=== PATIENT | female | born 2000 | race Caucasian/White ===

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

== ENCOUNTER 2020-04-28 14:14 | Observation (INO) | payer OTHER ==
[2020-04-28 15:00] LABS: Appearance,Urine Cloudy (Clear); Bilirubin,Urine Negative (Negative); Blood,Urine Negative (Negative); Color,Urine Yellow; Glucose,Urine (UA) Negative (Negative); Ketones,Urine Negative (Negative); Leukocyte Esterase,Urine Negative (Negative); Mucus,Urine Rare /hpf; Nitrite,Urine Negative (Negative); PH, Urine 7.5 (5.0-8.0); Protein,Urine Negative (Negative); RBC,Urine 1 /hpf (0-5); Specific Gravity,Urine 1.016 (1.001-1.035); Squamous Epithelial Cell,Urine 7 /hpf (0-4); Urobilinogen,Urine <2.0 mg/dL (<2.0); WBC,Urine 3 /hpf (0-5)
[2020-04-28 15:19] LABS: Basophils % (A) 0 %; Eosinophils # (A) 0.3 k/uL (0-0.7); Eosinophils % (A) 3 %; HCT 37.2 % (34.0-46.0); HGB 12.6 gm/dL (11.4-16.0); Lymphocytes # (A) 1.5 k/uL (1.0-4.8); Lymphocytes % (A) 19 %; MCH 32.2 pg (25.0-35.0); MCHC 33.9 g/dL (31.0-37.0); MCV 95.1 fL (80.0-100.0); Mean Platelet Volume 8.1; Monocytes # (A) 0.4 k/uL (0-1.0); Monocytes % (A) 5 %; Neutrophils # (A) 5.6 k/uL (1.3-7.7); Neutrophils % (A) 71 %; Platelet Count 165 k/uL (150-450); RBC 3.92 m/uL (3.80-5.40); WBC 7.9 k/uL (3.8-10.6)
[2020-04-28 15:34] LABS: ALT 9 U/L (4-34); AST 16 U/L (14-36); African American GFR (CKD) >90 (>60 ml/min/1.73 sqM); Blood Urea Nitrogen 7 mg/dL (7-17); LDH 314 U/L (313-618); Non-African American GFR(CKD) >90 (>60 ml/min/1.73 sqM); Uric Acid 4.4 mg/dL (3.7-7.4)
[2020-04-28 15:43] LABS: Creatinine,Urine Random 65.8 mg/dL; Protein/Creatinine Ratio,Urine 0.137
[2020-04-28] MEDS: BETAMET ACET-BETAMETH SOD PHOS 6 MG/ML MDV IM SCH (17:00)
--- NOTE | 2020-04-28 17:29 | US ---
EXAMINATION TYPE: US OB >= 14 wk fetus DATE OF EXAM: 04/28/2020 COMPARISON: None CLINICAL HISTORY: Gestational Hypertension TECHNIQUE: Transabdominal (TA) GESTATIONAL AGE / DATING Physician Established: (32 weeks/2 days) EDC: 06/22/20 Dates by LMP: LMP unknown Dates by First Scan: 1st scan not available Dates by Current Scan: (32 weeks/2 days) EDC: 06/22/20 SURVEY IUP: Single PLACENTA: Anterior PREVIA: No Previa LOS: 14.7 cm CERVICAL LENGTH (transabdominal: norm > 3.0cm): 3.6 cm BIOMETRY PRESENTATION: LIE: Transverse with head maternal Right BPD: 8.0 cm 32 weeks / 2 days HC: 29.3 cm 32 weeks / 3 days AC: 27.8 cm 31 weeks / 6 days FL: 6.1 cm 31 weeks / 5 days ESTIMATED WEIGHT IN GRAMS: 1856 grams ESTIMATED WEIGHT IN LBS/OZ: 4 lbs. 1 oz. WEIGHT PERCENTAGE BASED ON ESTABLISHED DATES: 27 % HC/AC: 1.05 FL/AC: 22% HEART RATE: 158 bpm RHYTHM: Normal IMPRESSION: The ultrasound gestational age is 32 weeks and 1 day. The YAZMIN is 06/22/2020. Estimated weight is 1856 g.
--- NOTE | 2020-04-28 19:54 | P.HPOB ---
History of Present Illness H&P Date: 04/28/20 Chief Complaint: elevated BP 20 year old at 32.2 presented to the office with a mildly elevated BP of 142/82. When she presented to triage, her BPs were 130-150/80-90. Her pre- eclamptic labs were normal except the p/c ratio which was elevated. With her history of GHTN in a previous , I will keep her to give celestone injections, monitor BP and perform 24 hour urine protein. NST is reactive; category 1 heart tones, and she is not chelsi. Review of Systems All systems: negative Constitutional: Denies chills, Denies fever Eyes: denies blurred vision, denies pain Ears, nose, mouth and throat: Denies headache, Denies sore throat Cardiovascular: Denies chest pain, Denies shortness of breath Respiratory: Denies cough Gastrointestinal: Denies abdominal pain, Denies diarrhea, Denies nausea, Denies vomiting Genitourinary: Denies dysuria, Denies hematuria Musculoskeletal: Denies myalgias Integumentary: Denies pruritus, Denies rash Neurological: Denies numbness, Denies weakness Psychiatric: Denies anxiety, Denies depression Endocrine: Denies fatigue, Denies weight change Past Medical History Past Medical History: Asthma Additional Past Medical History / Comment(s): Obtetric history: first she delivered by C/S at 39 weeks for transverse lie with GDM and GHTN. THis is her second . She has been followed by Dr Valdez with [place] [facility] [place]. History of Any Multi-Drug Resistant Organisms: None Reported Past Surgical History: Section Past Anesthesia/Blood Transfusion Reactions: No Reported Reaction Additional Past Anesthesia/Blood Transfusion Reaction / Comment(s): Has never had general anesthesia. Past Psychological History: Anxiety, Depression Smoking Status: Never smoker Past Alcohol Use History: None Reported Past Drug Use History: None Reported - Past Family History Mother Family Medical History: Diabetes Mellitus Medications and Allergies Home Medications Medication Instructions Recorded Confirmed Type RX: Pnv,Calcium 72/Iron/Folic Acid 1 each PO DAILY 11/16/18 11/20/18 History [ Plus Tablet] RX: Aspirin [Children's Aspirin] 81 mg DAILY 04/28/20 04/28/20 History Allergies Allergy/AdvReac Type Severity Reaction Status Date / Time No Known Allergies Allergy Verified 11/20/18 11:07 Exam Osteopathic Statement: *. No significant issues noted on an osteopathic structural exam other than those noted in the History and Physical/Consult. Vital Signs Temp Pulse Resp BP 04/28/20 14:32 98.1 F 108 H 16 149/98 Intake and Output 04/28/20 04/28/20 04/28/20 06:59 14:59 22:59 Other: Weight 88.904 kg 88.904 kg HEart: RRR Lungs: CTAB Abdomen: soft, nontender, gravid Extremteites: neg niecy's 2+/4 DTR Results Result Diagrams: 04/28/20 14:53 04/28/20 14:53 Abnormal Lab Results - Last 24 Hours (Table) 04/28/20 04/28/20 Range/Units 14:35 14:53 Creatinine 0.43 L (0.52-1.04) mg/dL Urine Appearance Cloudy H (Clear) Ur Squamous Epith Cells 7 H (0-4) /hpf Urine Mucus Rare H (None) /hpf Assessment and Plan (1) 32 weeks gestation of Current Visit: Yes Status: Acute Code(s): Z3A.32 - 32 WEEKS GESTATION OF PRE GNANCY SNOMED Code(s): 8557683 (2) Gestational hypertension Current Visit: No Status: Acute Code(s): O13.9 - GESTATIONAL HTN W/O SIGNIFICANT PROTEINURIA, UNSP TRIMESTER SNOMED Code(s): 319055135 Plan: 1. will admit for obs 2. monitor BPs 3. collect 24 hour urine protein since the p/c ratio was elevated 4. celestone injections in case she needs early delivery
[2020-04-29 09:56] VITALS: RESP 16
--- NOTE | 2020-04-29 13:30 | P.DS ---
Providers Date of admission: 04/28/20 16:21 Expected date of discharge: 04/29/20 Attending physician: Wendy Valdez Primary care physician: Stated None Hospital Course: This is a 20-year-old female at 32-2/7 weeks who was admitted for a 24- hour urine collection for total protein due to gestational hypertension. Her initial protein to creatinine ratio was actually normal but due to elevated blood pressures decision was made to observe her and do a more thorough 24-hour urine collection. She denies any headaches or blurry vision. She admits to good movement. She denies any regular contractions. She is currently completing a 24-hour urine collection and blood pressures have been in the nonsevere range. She has also received 1 dose of Celestone and will receive a second dose today. Plan is for discharge home today after her second Celestone injection. She will continue to follow up in the office for twice weekly nonstress tests and has an appointment to follow-up with me next week. She also has maternal medicine appointment for ultrasound next week. She is advised to return to the hospital if she starts having any severe symptoms such as severe headache, blurry vision, epigastric pain, or any other concerning symptoms. Patient Condition at Discharge: Stable Plan - Discharge Summary New Discharge Prescriptions: No Action RX: Pnv,Calcium 72/Iron/Folic Acid [ Plus Tablet] 1 each PO DAILY RX: Aspirin [Children's Aspirin] 81 mg DAILY Discharge Medication List RX: Pnv,Calcium 72/Iron/Folic Acid [ Plus Tablet] 1 each PO DAILY 11/16/18 [History] RX: Aspirin [Children's Aspirin] 81 mg DAILY 04/28/20 [History] Follow up Appointment(s)/Referral(s): Wendy Valdez DO [Doctor of Osteopathic Medicine] - 1 Week Discharge Disposition: HOME SELF-CARE
[2020-04-29 13:58] VITALS: PULSE 104; TEMP 97.9
[2020-04-29 15:09] LABS: Total Volume 24 Hour,Urine 2275 mls (800-1800)
[2020-04-29 15:40] LABS: Total Protein 24 Hour,Urine 159 mg/24hr (42.0-225.0)
[2020-04-29 16:42] VITALS: BP 138/80
[2020-04-29] MEDS: BETAMET ACET-BETAMETH SOD PHOS 6 MG/ML MDV IM SCH (17:03)
== END 2020-04-29 17:16 | disposition home or self-care (01) ==
LOC: FBPOP 14:14 → 4FBP 16:21
PROVIDERS: ADMIT Obstetrics & Gynecology; ATTEND Obstetrics & Gynecology
DX: O13.3 Gestational [pregnancy-induced] hypertension without significant proteinuria, third trimester (principal); O99.513 Diseases of the respiratory system complicating pregnancy, third trimester; J45.909 Unspecified asthma, uncomplicated; O99.343 Other mental disorders complicating pregnancy, third trimester; F41.9 Anxiety disorder, unspecified; F32.9 Major depressive disorder, single episode, unspecified; O34.211 Maternal care for low transverse scar from previous cesarean delivery; Z3A.32 32 weeks gestation of pregnancy; Z79.82 Long term (current) use of aspirin; Z86.32 Personal history of gestational diabetes; Z83.3 Family history of diabetes mellitus
CPT/HCPCS: 59025; 96372; 82570; 84156 ×2; 81050; 82565; 83615; 84450; 84460; 84520; 84550; 85025; 81001; 76805; G0378; J0702 ×2

== ENCOUNTER 2020-05-20 14:06 | Outpatient (CLI) | payer OTHER ==
[2020-05-20 15:01] LABS: ALT 9 U/L (4-34); AST 17 U/L (14-36); African American GFR (CKD) >90 (>60 ml/min/1.73 sqM); Blood Urea Nitrogen 8 mg/dL (7-17); LDH 320 U/L (313-618); Non-African American GFR(CKD) >90 (>60 ml/min/1.73 sqM); Uric Acid 5.3 mg/dL (3.7-7.4)
[2020-05-20 15:05] LABS: Basophils % (A) 0 %; Eosinophils # (A) 0.2 k/uL (0-0.7); Eosinophils % (A) 3 %; HCT 37.6 % (34.0-46.0); HGB 12.1 gm/dL (11.4-16.0); Lymphocytes # (A) 1.2 k/uL (1.0-4.8); Lymphocytes % (A) 17 %; MCH 30.4 pg (25.0-35.0); MCHC 32.1 g/dL (31.0-37.0); MCV 94.8 fL (80.0-100.0); Monocytes # (A) 0.4 k/uL (0-1.0); Monocytes % (A) 6 %; Neutrophils # (A) 4.9 k/uL (1.3-7.7); Neutrophils % (A) 72 %; Platelet Count 138 k/uL (150-450); RBC 3.96 m/uL (3.80-5.40); RDW 13.6 % (11.5-15.5); WBC 6.8 k/uL (3.8-10.6)
[2020-05-20 15:33] LABS: Appearance,Urine Clear (Clear); Bacteria,Urine Rare /hpf; Bilirubin,Urine Negative (Negative); Blood,Urine Negative (Negative); Color,Urine Yellow; Glucose,Urine (UA) Negative (Negative); Ketones,Urine Negative (Negative); Leukocyte Esterase,Urine Small (Negative); Mucus,Urine Occasional /hpf; Nitrite,Urine Positive (Negative); Protein,Urine Trace (Negative); RBC,Urine 1 /hpf (0-5); Specific Gravity,Urine 1.019 (1.001-1.035); Squamous Epithelial Cell,Urine 5 /hpf (0-4); Urobilinogen,Urine <2.0 mg/dL (<2.0); WBC,Urine 5 /hpf (0-5)
[2020-05-20 15:41] LABS: Protein/Creatinine Ratio,Urine 0.074
== END 2020-05-20 16:10 | disposition home or self-care (01) ==
LOC: FBPOP 14:06
PROVIDERS: ATTEND Obstetrics & Gynecology
DX: O13.9 Gestational [pregnancy-induced] hypertension without significant proteinuria, unspecified trimester (principal); Z3A.00 Weeks of gestation of pregnancy not specified
CPT/HCPCS: 59025; 81001; 82565; 82570; 83615; 84156; 84450; 84460; 84520; 84550; 85025; 87086

== ENCOUNTER 2020-05-27 13:56 | Inpatient (IN) | payer OTHER ==
[2020-05-27 14:49] LABS: Basophils % (A) 0 %; Eosinophils # (A) 0.3 k/uL (0-0.7); Eosinophils % (A) 4 %; HCT 36.3 % (34.0-46.0); HGB 12.2 gm/dL (11.4-16.0); Lymphocytes # (A) 1.3 k/uL (1.0-4.8); Lymphocytes % (A) 19 %; MCH 30.9 pg (25.0-35.0); MCHC 33.5 g/dL (31.0-37.0); MCV 92.1 fL (80.0-100.0); Mean Platelet Volume 8.9; Monocytes # (A) 0.4 k/uL (0-1.0); Monocytes % (A) 5 %; Neutrophils % (A) 71 %; Platelet Count 177 k/uL (150-450); RBC 3.95 m/uL (3.80-5.40); RDW 13.9 % (11.5-15.5); WBC 7.1 k/uL (3.8-10.6)
[2020-05-27 14:50] LABS: Appearance,Urine Clear (Clear); Bilirubin,Urine Negative (Negative); Blood,Urine Negative (Negative); Color,Urine Yellow; Glucose,Urine (UA) Negative (Negative); Ketones,Urine Negative (Negative); Leukocyte Esterase,Urine Negative (Negative); Nitrite,Urine Negative (Negative); Protein,Urine Trace (Negative); Specific Gravity,Urine 1.021 (1.001-1.035); Urobilinogen,Urine <2.0 mg/dL (<2.0)
[2020-05-27 15:01] LABS: ALT 9 U/L (4-34); AST 18 U/L (14-36); African American GFR (CKD) >90 (>60 ml/min/1.73 sqM); Blood Urea Nitrogen 5 mg/dL (7-17); LDH 383 U/L (313-618); Non-African American GFR(CKD) >90 (>60 ml/min/1.73 sqM); Uric Acid 4.5 mg/dL (3.7-7.4)
[2020-05-27 15:09] LABS: Creatinine,Urine Random 134.9 mg/dL; Protein/Creatinine Ratio,Urine 0.067
[2020-05-27] MEDS ORDERED: LACTATED RINGERS 1,000 ML IV ONE (15:55)
[2020-05-27] MEDS ORDERED: CITRIC ACID-SODIUM CITRATE 15 ML CUP PO ONE (15:55)
[2020-05-27] MEDS ORDERED: LABETALOL 5 MG/ML VIAL MDV IVP PRN ×3 (15:58)
[2020-05-27] MEDS ORDERED: hydrALAZINE HCL 20 MG/ML 1 ML VIAL IVP PRN (15:58)
[2020-05-27] MEDS ORDERED: ePHEDrine SULFATE/0.9% NACL/PF 50 MG/5 ML SYRINGE IV ONE (17:02)
[2020-05-27] MEDS ORDERED: ONDANSETRON 4 MG/2 ML VIAL ONE (17:02)
[2020-05-27] MEDS ORDERED: MORPHINE SULFATE (PF) 0.3 MG/0.3 ML SYR ONE (17:02)
[2020-05-27] MEDS ORDERED: OXYTOCIN 10 UNIT/ML 1 ML VIAL ONE (17:02)
[2020-05-27] MEDS ORDERED: KETOROLAC 15 MG/ML 1 ML VIAL ONE (17:02)
--- NOTE | 2020-05-27 17:06 | P.HPOB ---
History of Present Illness H&P Date: 05/27/20 Chief Complaint: Severe gestational hypertension This is a 20-year-old female 2 para 1 with an estimated date of confinement of 06/21/2020, estimated gestational age of 36-3/7 weeks, who presented to the office for her scheduled visit and was noted to have a n elevated blood pressure at 148/92. She complained of lower cramping and pressure more so today. She denies any headaches, blurry vision, or epigastric pain. She was sent over to the hospital for labs and blood pressure monitoring. Her labs were all within normal limits and did not show preeclampsia however her blood pressures did reach the severe range and we did have to push labetalol one time. In light of these findings the decision is made to proceed with delivery right away. She is a scheduled repeat section with tubal ligation. labs: GC/makenzie/Trichomonas-negative Hepatitis B surface antigen-negative RPR-nonreactive Rubella-immune Blood type-A+ Antibody screen-negative Hemoglobin-14 Toxoplasma screen-negative Random glucose-82 Obstetrical ultrasound-normal anatomy One hour Glucola-137 Three-hour Glucola-within normal limits Group B streptococcus-negative Obstetrical history: . History of 1 delivery for gestational diabetes and gestational hypertension at 39-1/2 weeks. Gynecologic history: No history of sexual transmitted diseases Social history: She is single. She is currently unemployed. Review of Systems Constitutional: Denies chills, Denies fever Eyes: denies blurred vision, denies pain Ears, nose, mouth and throat: Denies headache, Denies sore throat Cardiovascular: Denies chest pain, Denies shortness of breath Respiratory: Denies cough Gastrointestinal: Reports abdominal pain (Contractions) Genitourinary: Reports Musculoskeletal: Reports low back pain Integumentary: Denies pruritus, Denies rash Neurological: Denies numbness, Denies weakness Psychiatric: Denies anxiety, Denies depression Past Medical History Past Medical History: Asthma Additional Past Medical History / Comment(s): Obtetric history: first she delivered by C/S at 39 weeks for transverse lie with GDM and GHTN. THis is her second . [place] [facility] [place] History of Any Multi-Drug Resistant Organisms: None Reported Past Surgical History: Section Past Anesthesia/Blood Transfusion Reactions: No Reported Reaction Additional Past Anesthesia/Blood Transfusion Reaction / Comment(s): Has never had general anesthesia. Past Psychological History: No Psychological Hx Reported Smoking Status: Never smoker Past Alcohol Use History: None Reported Past Drug Use History: None Reported - Past Family History Mother Family Medical History: Diabetes Mellitus Medications and Allergies Home Medications Medication Instructions Recorded Confirmed Type RX: Pnv,Calcium 72/Iron/Folic Acid 1 each PO DAILY 11/16/18 05/27/20 History [ Plus Tablet] RX: Aspirin [Children's Aspirin] 81 mg DAILY 04/28/20 05/27/20 History Allergies Allergy/AdvReac Type Severity Reaction Status Date / Time No Known Allergies Allergy Verified 05/27/20 14:12 Exam Osteopathic Statement: *. No significant issues noted on an osteopathic structural exam other than those noted in the History and Physical/Consult. Intake and Output 05/27/20 05/27/20 05/27/20 06:59 14:59 22:59 Other: Weight 92.079 kg HEENT: Within normal limits Heart: Regular rate and rhythm Lungs: Clear to auscultation bilaterally Abdomen: Cervix closed/60%/floating heart tones: Reactive with category 1 tracing Contractions: Irregular Extremities: Negative Homans Results Result Diagrams: 05/27/20 14:25 05/27/20 14:25 Abnormal Lab Results - Last 24 Hours (Table) 05/27/20 05/27/20 Range/Units 14:25 14:25 BUN 5 L (7-17) mg/dL Creatinine 0.43 L (0.52-1.04) mg/dL Urine Protein Trace H (Negative) Assessment and Plan (1) Previous delivery affecting Current Visit: Yes Status: Acute Code(s): O34.219 - MATERNAL CARE FOR UNSP TYPE SCAR FROM PREVIOUS DEL SNOMED Code(s): 419782509 (2) Family planning Current Visit: Yes Status: Acute Code(s): Z30.09 - ENCOUNTER FOR OTH GENERAL CNSL AND ADVICE ON CONTRACEPTION SNOMED Code(s): 075235169 (3) Gestational hypertension Narrative/Plan: Severe Current Visit: No Status: Acute Code(s): O13.9 - GESTATIONAL HTN W/O SIGNIFICANT PROTEINURIA, UNSP TRIMESTER SNOMED Code(s): 787776995 Plan: Admission for severe gestational hypertension. Labetalol as needed. Will proceed with urgent repeat section with tubal ligation. I have discussed the risks, benefits, and alternative therapies for the above- mentioned procedure and for both sedation/anesthesia as well as necessary blood products administration, if indicated, as they pertain to this patient. The patient has indicated her understanding and acceptance of the risks and procedures discussed.
--- NOTE | 2020-05-27 17:52 | P.OP ---
Date of Procedure: 05/27/20 Preoperative Diagnosis: 1. Intrauterine at 36-3/7 weeks. 2. Gestational hypertension-severe. 3. History of previous section. 4. Family-planning. 5. Non-vertex lie Postoperative Diagnosis: Same Procedure(s) Performed: Repeat low transverse section with bilateral partial salpingectomy Anesthesia: spinal (Duramorph) Surgeon: Wendy Valdez Gut Snatcher #1: Milvia Mark Estimated Blood Loss (ml): 450 Pathology: other (Placenta, portions of right and left fallopian tubes) Condition: stable Disposition: floor Indications for Procedure: This is a 20-year-old female 2 para 1 with an estimated date of confinement of 06/21/2020, estimated gestational age of 36-3/7 weeks, who presented to labor and delivery with elevated blood pressures in the office. Her preeclamptic workup was negative however her blood pressures steadily increased to the severe category. She was given 1 dose of labetalol 20 mg IV push prior to going back for section. She had previously signed papers for tubal ligation and her baby was in a transverse lie at the last ultrasound. She is taken for an urgent repeat section with bilateral partial salpingectomy. I have discussed the risks, benefits, and alternative therapies for the above- mentioned procedure and for both sedation/anesthesia as well as necessary blood products administration, if indicated, as they pertain to this patient. The patient has indicated her understanding and acceptance of the risks and procedures discussed. Operative Findings: A viable male infant is noted in the radha breech presentation with scores of 7 at 1 minute and 8 at 5 minutes and infant weight of 6 lbs. 0 oz. Normal uterus tubes and ovaries are noted. Description of Procedure: The patient is taken to the operating room where she is placed in the dorsal supine position with leftward tilt after spinal Duramorph anesthesia is given. She is prepped and draped in the normal sterile fashion. Skin was tested and f ound to be adequately anesthetized. A Pfannenstiel skin incision was made with a scalpel through the previous laparotomy scar. A second knife was used to carry the incision down to the underlying layer of fascia. The fascia was nicked in the midline with a scalpel and then extended laterally bilaterally with Grady scissors. The anterior lip of the fascia was grasped with 2 Shilo clamps and then dissected off the underlying rectus muscle in the midline with Grady scissors. The inferior aspect of the fascial incision was grasped with 2 Shilo clamps and dissected off the underlying rectus muscle and the midline with Grady scissors. Next the peritoneum layer was tented up with 2 hemostats and then entered sharply with the scalpel. The incision is extended superiorly and inferiorly with Metzenbaum scissors. Next a DeLee retractor is placed. The vesicouterine peritoneum is entered sharply with Metzenbaum scissors and extended laterally bilaterally with Metzenbaum scissors and then the bladder flap is pushed inferiorly. The lower uterine segment is incised in transverse fashion with the scalpel and then bluntly entered with a hemostat. Clear fluid is noted. The incision was then extended laterally bilaterally with 2 fingers. Next the infant's buttocks is delivered through the incision followed by the remainder of the trunk, each arm in a flexed position, and the head. Nose and mouth are bulb suctioned. Cord is clamped and cut. Infant is taken to warmer by nursing staff. Uterine fundus is gently massaged and placenta is delivered manually. Uterus is exteriorized and cleared of all clots and debris. Uterine incision is closed with 0 Vicryl suture in a running locked fashion. A second layer of 0 Vicryl suture is used in a running fashion for hemostasis. Next the right fallopian tube is grasped in the midportion with a hemostat. The mesosalpinx is entered with Bovie cautery. 0 Vicryl suture is tied 2 times around both the proximal and distal portion of the tube. The knuckle of tube was then removed with Metzenbaum scissors and the ends of the tube are cauterized with Bovie cautery. Good hemostasis is noted. Posterior cul-de-sac is suctioned of all clots and debris. Uterus is returned to the abdomen. Incision is noted to be hemostatic. Both tubal sites are also noted to be hemostatic. Peritoneal layer is closed with 0 Vicryl suture in a running fashion. Muscle layer is reapproximated with 0 Vicryl suture in interrupted fashion. Fascia layer is then closed with 0 PDS suture with 2 sutures meeting in the midline and the knots buried in either side and in the midline. The subcutaneous tissue was then closed with 2-0 Vicryl suture. Skin layer was then closed with sonam. All sponge and needle counts are correct. The patient is taken to recovery room in stable condition.
[2020-05-27] MEDS ORDERED: METOCLOPRAMIDE 5 MG/ML 2 ML VIAL IVP PRN (18:27)
[2020-05-27] MEDS ORDERED: diphenhydrAMINE 50 MG CAP PO PRN (18:27)
[2020-05-27] MEDS ORDERED: LANOLIN CREAM 5 GM TUBE TOPICAL PRN (18:27)
[2020-05-27] MEDS ORDERED: SIMETHICONE 80 MG CHEWABLE PO PRN (18:27)
[2020-05-27] MEDS ORDERED: diphenhydrAMINE 50 MG/ML 1 ML VIAL IVP PRN (18:27)
[2020-05-27] MEDS ORDERED: ONDANSETRON 4 MG/2 ML VIAL IVP PRN (18:27)
[2020-05-27] MEDS ORDERED: OXYTOCIN 20 UNITS/1000 ML NS 1,000 ML IV SCH (18:27)
[2020-05-27] MEDS ORDERED: ACETAMINOPHEN TAB 325 MG TAB PO PRN (18:27)
[2020-05-27] MEDS ORDERED: NALOXONE 0.4 MG/ML 1 ML VIAL IV PRN ×2 (18:27→18:47)
[2020-05-27] MEDS ORDERED: ZOLPIDEM 5 MG TAB PO PRN (18:27)
[2020-05-27] MEDS ORDERED: diphenhydrAMINE 25 MG CAP PO PRN (18:27)
[2020-05-27] MEDS ORDERED: HYDROcodone/APAP 7.5-325MG 1 EACH TAB PO PRN (18:27)
[2020-05-27] MEDS ORDERED: MORPHINE SULFATE 2 MG/ML SYRINGE IVP PRN (18:47)
[2020-05-27] MEDS: diphenhydrAMINE 50 MG/ML 1 ML VIAL IVP PRN (19:06)
[2020-05-27] MEDS: SENNOSIDES-DOCUSATE SODIUM 1 EACH TAB PO SCH (23:25)
[2020-05-27] MEDS: KETOROLAC 15 MG/ML 1 ML VIAL IVP PRN (23:32)
[2020-05-28] MEDS: diphenhydrAMINE 50 MG/ML 1 ML VIAL IVP PRN (04:00)
--- NOTE | 2020-05-28 08:19 | P.PN ---
Progress Note - Text Progress Note Date: 05/28/20 (356) Anesthesia Postop day 1 Subjective: Status Post section with Duramorph. Patient seen and examined. Doing well without complaint. VAS 0. No nausea or vomiting. Mild pruritus tolerable.. Afebrile. Gross lower extremity strength intact. Without apparent anesthetic complications. Objective: Vital signs reviewed Heart: Regular Rate Lungs: Good chest excursion Abdomen: Appears nondistended Assessment: Status post with Duramorph postop day 1 Plan: Continue current care with your medical management. Answered all questions
[2020-05-28] MEDS: KETOROLAC 15 MG/ML 1 ML VIAL IVP PRN ×2 (08:22→14:37)
[2020-05-28] MEDS ORDERED: PRENATAL VIT-IRON-FOLIC ACID 1 EACH CAP PO SCH (09:00)
--- NOTE | 2020-05-28 09:05 | P.PN ---
Subjective Progress Note Date: 05/28/20 Principal diagnosis: Status post primary section postoperative day #1 Patient is doing well. She is ambulating. She is passing flatus but no bowel movement yet. Lochia is decreasing. Baby is in level I nursery. Objective - Vital Signs Vital signs: Vital Signs Temp 97.7 F 05/28/20 07:46 Pulse 86 05/28/20 07:46 Resp 16 05/28/20 07:46 BP 134/66 05/28/20 07:46 Pulse Ox 98 05/28/20 07:46 Intake & Output 05/27/20 05/28/20 05/28/20 18:59 06:59 18:59 Intake Total 1000 Output Total 400 900 Balance -400 100 Weight 92.079 kg Intake: IV 1000 Output: Urine 400 900 Uretheral (Garner) 200 Other: Voiding Method Indwelling Catheter Indwelling Catheter # Emeses 1 - Constitutional General appearance: Present: no acute distress - Gastrointestinal Gastrointestinal Comment(s): Incision is clean dry and intact with sonam in place General gastrointestinal: Present: normal bowel sounds - Labs CBC & Chem 7: 05/27/20 14:25 05/27/20 14:25 Labs: Abnormal Lab Results - Last 24 Hours (Table) 05/27/20 05/27/20 Range/Units 14:25 14:25 BUN 5 L (7-17) mg/dL Creatinine 0.43 L (0.52-1.04) mg/dL Urine Protein Trace H (Negative) Assessment and Plan Assessment: Status post primary low transverse section postoperative day #1, gestational hypertension-stable (1) Previous delivery affecting Current Visit: Yes Status: Acute Code(s): O34.219 - MATERNAL CARE FOR UNSP TYPE SCAR FROM PREVIOUS DEL SNOMED Code(s): 263578092 (2) Family planning Current Visit: Yes Status: Acute Code(s): Z30.09 - ENCOUNTER FOR OTH GENERAL CNSL AND ADVICE ON CONTRACEPTION SNOMED Code(s): 737516111 (3) Gestational hypertension Current Visit: No Status: Acute Code(s): O13.9 - GESTATIONAL HTN W/O SIGNIFICANT PROTEINURIA, UNSP TRIMESTER SNOMED Code(s): 420916369 Plan: Continue with postoperative care today. Switch to oral pain medications. Encouraged ambulation.
[2020-05-28] MEDS: SENNOSIDES-DOCUSATE SODIUM 1 EACH TAB PO SCH ×2 (09:24→19:28)
[2020-05-28 09:26] LABS: Basophils % (A) 0 %; Eosinophils # (A) 0.1 k/uL (0-0.7); Eosinophils % (A) 1 %; HCT 35.1 % (34.0-46.0); HGB 11.7 gm/dL (11.4-16.0); Lymphocytes # (A) 1.4 k/uL (1.0-4.8); Lymphocytes % (A) 19 %; MCH 31.6 pg (25.0-35.0); MCHC 33.2 g/dL (31.0-37.0); Mean Platelet Volume 8.9; Monocytes # (A) 0.3 k/uL (0-1.0); Monocytes % (A) 4 %; Neutrophils # (A) 5.6 k/uL (1.3-7.7); Neutrophils % (A) 74 %; Platelet Count 134 k/uL (150-450); RBC 3.69 m/uL (3.80-5.40); RDW 13.4 % (11.5-15.5); WBC 7.5 k/uL (3.8-10.6)
[2020-05-28] MEDS: HYDROcodone/APAP 5-325MG 1 EACH TAB PO PRN ×3 (12:35→23:58)
[2020-05-28 20:26] VITALS: BP 120/86; PULSE 111; TEMP 98.2
[2020-05-28] MEDS: IBUPROFEN 600 MG TAB PO PRN (20:55)
[2020-05-29] MEDS: IBUPROFEN 600 MG TAB PO PRN (00:08)
[2020-05-29 00:31] VITALS: RESP 16
--- NOTE | 2020-05-29 08:14 | P.DS ---
Providers Date of admission: 05/27/20 16:16 Expected date of discharge: 05/28/20 Attending physician: Wendy Valdez Primary care physician: Stated None - Discharge Diagnosis(es) (1) Previous delivery affecting Status: Acute (2) Family planning Status: Acute (3) Gestational hypertension Status: Acute Hospital Course: [id number] female 2 para 1 at 36-3/7 weeks who presented to labor and delivery with elevated blood pressures in the severe range. Preeclampsia labs were negative. She was given IV labetalol and then underwent a repeat low transverse section with bilateral partial salpingectomy on 05/27/2020 and delivered a viable male infant. Baby did go to level I nursery and was put on oxygen. Her lochia had been decreasing and her pain was fairly well controlled. Her blood pressures have normalized. Her baby required transfer to [email or web address] and therefore the patient requested discharge on the evening of 05/28/2020. She was determined to be stable for discharge and was discharged home. Geneva were removed and Steri-Strips were placed prior to discharge. Her vital signs were stable. Abdomen was soft with fundus nontender. Incision was clean dry and intact. She will be given a prescription for ibuprofen and Neeses. She is advised to follow up in the office in 1 week for a postoperative check and in 6 weeks for a check. She is advised to call the office if she has any further questions or concerns prior to her appointment time. Procedures: Repeat low transverse section with bilateral partial salpingectomy on 05/27/2020 Patient Condition at Discharge: Stable Plan - Discharge Summary New Discharge Prescriptions: New Ibuprofen [Motrin] 600 mg PO Q6HR PRN #60 tab PRN Reason: Pain HYDROcodone/APAP 5-325MG [Neeses 5-325] 1 tab PO Q4HR PRN 3 Days #18 tab PRN Reason: Moderate To Severe Pain Continue Pnv,Calcium 72/Iron/Folic Acid [ Plus Tablet] 1 each PO DAILY No Action Aspirin [Children's Aspirin] 81 mg DAILY Discharge Medication List Pnv,Calcium 72/Iron/Folic Acid [ Plus Tablet] 1 each PO DAILY 11/16/18 [History] Aspirin [Children's Aspirin] 81 mg DAILY 04/28/20 [History] HYDROcodone/APAP 5-325MG [Neeses 5-325] 1 tab PO Q4HR PRN 3 Days #18 tab 05/29/20 [Rx] Ibuprofen [Motrin] 600 mg PO Q6HR PRN #60 tab 05/29/20 [Rx] Follow up Appointment(s)/Referral(s): Wendy Valdez DO [Doctor of Osteopathic Medicine] - 1 Week Activity/Diet/Wound Care/Special Instructions: Instructions 1. Do not begin any exercise program for 3 weeks. 2. Do not resume sexual relations for 3 weeks or longer if uncomfortable. 3. You may take tub baths or showers at any time. 4. You may use tampons if desired after 3 weeks. 5. Keep the area of episiotomy (stitches) clean and dry. 6. If you are not nursing, wear a good fitting, supportive bra during the day and limit fluid intake for at least 1 week to prevent breast engorgement. 7. Call the office, [phone], within the next week to make appointment for your 6 week checkup if it has not already been made. 8. Report any of the following occurrences to the doctor promptly: a. Heavy, excessive bleeding b. Chills, fever c. Burning or frequency of urination d. Pain or redness and breasts if nursing e. Increasing pain or swelling in episiotomy (stitches). In addition to the above instructions, the following additional should be followed: 1. No heavy lifting or straining (exercising) until after 6 week checkup. 2. Keep abdominal incision clean and dry: You may wear a dressing if more comfortable. 3. Make office appointment for 10 days after going home or as instructed by her doctor. Discharge Disposition: HOME SELF-CARE
== END 2020-05-29 00:17 | disposition home or self-care (01) | DRG 785 ==
LOC: FBPOP 13:56 → 4FBP 16:16
PROVIDERS: ADMIT Obstetrics & Gynecology; ATTEND Obstetrics & Gynecology
PROC: 0UB70ZZ Excision of Bilateral Fallopian Tubes, Open Approach (ICD-10-PCS; principal; 2020-05-27 16:58)
PROC: 10D00Z1 Extraction of Products of Conception, Low, Open Approach (ICD-10-PCS; principal; 2020-05-27 16:58)
DX: O13.4 Gestational [pregnancy-induced] hypertension without significant proteinuria, complicating childbirth (principal); O34.211 Maternal care for low transverse scar from previous cesarean delivery; O32.1XX0 Maternal care for breech presentation, not applicable or unspecified; O99.52 Diseases of the respiratory system complicating childbirth; J45.909 Unspecified asthma, uncomplicated; L29.9 Pruritus, unspecified; Z30.2 Encounter for sterilization; Z37.0 Single live birth; Z3A.36 36 weeks gestation of pregnancy; Z56.0 Unemployment, unspecified; Z79.82 Long term (current) use of aspirin; Z83.3 Family history of diabetes mellitus
CPT/HCPCS: 59025; 81003; 82565; 82570; 83615; 84156; 84450; 84460; 84520; 84550; 85025; 86850; 86900; 86901; 88302; 88307

== ENCOUNTER → 2021-05-21 | Outpatient (CLI) | payer OTHER ==
--- NOTE | 2021-05-21 08:16 | US ---
EXAMINATION TYPE: US abdomen complete DATE OF EXAM: 05/21/2021 COMPARISON: NONE CLINICAL HISTORY: R74.8 Abnormal levels of other serum enzymes. EXAM MEASUREMENTS: Liver Length: 16.6 cm Gallbladder Wall: 0.4 cm CBD: 0.3 cm Spleen: 11.8 cm Right Kidney: 9.8x4.6x5.1 cm Left Kidney: 10.6x5.4x4.2 cm Pancreas: wnl Liver: Focal fatty sparring adjacent to the GB Gallbladder: wnl Evidence for sonographic Gibbs's sign: No CBD: wnl Spleen: wnl Right Kidney: No masses or cysts. Left Kidney: No masses or cysts. Upper IVC: wnl Abd Aorta: wnl IMPRESSION: 1. No acute ultrasound abnormality of the abdomen. 2. Mild hepatomegaly
== END | disposition home or self-care (01) ==
LOC: RADUSWWP 07:10
PROVIDERS: ATTEND Family Medicine
DX: R16.0 Hepatomegaly, not elsewhere classified (principal)
CPT/HCPCS: 76700

== ENCOUNTER 2022-05-15 12:56 | Emergency (ER) | payer OTHER ==
[2022-05-15 13:04] VITALS: TEMP 96.8
[2022-05-15] MEDS ORDERED: SODIUM CHLORIDE 0.9% 1,000 ML IV STA (13:23)
--- NOTE | 2022-05-15 13:33 | ED ---
Weakness HPI - General Chief complaint: Weakness Stated complaint: vomiting Time Seen by Provider: 05/15/22 13:06 Source: patient, RN notes reviewed Mode of arrival: ambulatory Limitations: no limitations - History of Present Illness Initial comments: 22-year-old female presents emergency Department chief complaint of generalized weakness. Patient states she has not felt well over the last week patient states that she's had some on-and-off nausea vomiting. Patient states she just feels these that she may have COVID-19. She states she had negative at home test. Patient denies any sick contacts. Denies any chest pain shortness of breath patient uses see a primary care physician but her PCP retired. Patient denies any prior thirds. Patient denies sore throat headache dizziness no localized abdominal pain. Denies any chance . - Related Data Home Medications Medication Instructions Recorded Confirmed Vit No.180/Iron/Folic 1 each PO DAILY 11/16/18 05/27/20 [ Plus Vitamin-Mineral] Aspirin [Children's Aspirin] 81 mg DAILY 04/28/20 05/27/20 Previous Rx's Medication Instructions Recorded HYDROcodone/APAP 5-325MG [Swengel 1 tab PO Q4HR PRN 3 Days #18 tab 05/29/20 5-325] Ibuprofen [Motrin] 600 mg PO Q6HR PRN #60 tab 05/29/20 Ondansetron Odt [Zofran Odt] 4 mg PO Q8HR PRN #10 tab 05/15/22 Allergies Allergy/AdvReac Type Severity Reaction Status Date / Time blueberry Allergy Unknown Verified 05/15/22 13:04 Mushroom Allergy Unknown Verified 05/15/22 13:04 Review of Systems ROS Statement: Those systems with pertinent positive or pertinent negative responses have been documented in the HPI. ROS Other: All systems not noted in ROS Statement are negative. Past Medical History Past Medical History: Asthma Additional Past Medical History / Comment(s): Obtetric history: first she delivered by C/S at 39 weeks for transverse lie with GDM and GHTN. THis is her second . She has been followed by Dr Valdez with MFM at [facility] [place]. fatty liver dx History of Any Multi-Drug Resistant Organisms: None Reported Past Surgical History: Section Past Anesthesia/Blood Transfusion Reactions: No Reported Reaction Additional Past Anesthesia/Blood Transfusion Reaction / Comment(s): Has never had general anesthesia. Past Psychological History: Depression Smoking Status: Never smoker Past Alcohol Use History: None Reported Past Drug Use History: None Reported - Past Family History Mother Family Medical History: Diabetes Mellitus General Exam Limitations: no limitations General appearance: alert, in no apparent distress Head exam: Present: atraumatic, normocephalic, normal inspection Eye exam: Present: normal appearance, PERRL, EOMI. Absent: scleral icterus, conjunctival injection, periorbital swelling ENT exam: Present: normal exam, mucous membranes moist Neck exam: Present: normal inspection, full ROM. Absent: tenderness, meningismus, lymphadenopathy Respiratory exam: Present: normal lung sounds bilaterally. Absent: respiratory distress, wheezes, rales, rhonchi, stridor Cardiovascular Exam: Present: normal rhythm, tachycardia, normal heart sounds. Absent: systolic murmur, diastolic murmur, rubs, gallop, clicks GI/Abdominal exam: Present: soft, normal bowel sounds. Absent: distended, tenderness, guarding, rebound, rigid Neurological exam: Present: alert Skin exam: Present: warm, dry, intact, normal color. Absent: rash Course Vital Signs 05/15/22 13:01 Temperature 96.8 F L Pulse Rate 115 H Respiratory 20 Rate Blood Pressure 162/99 O2 Sat by Pulse 98 Oximetry Medical Decision Making - Medical Decision Making 22-year-old female presented for fatigue, nausea vomiting intermittent. Patient had full workup with no acute findings. Patient be discharged with Zofran advise increased fluids and follow-up PCP return parameters discussed. - Lab Data Result diagrams: 05/15/22 13:39 05/15/22 13:39 Lab Results 05/15/22 05/15/22 05/15/22 Range/Units 13:39 13:39 13:39 WBC 6.5 (3.8-10.6) k/uL RBC 4.91 (3.80-5.40) m/uL Hgb 14.1 (11.4-16.0) gm/dL Hct 42.0 (34.0-46.0) % MCV 85.6 (80.0-100.0) fL MCH 28.8 (25.0-35.0) pg MCHC 33.6 (31.0-37.0) g/dL RDW 13.6 (11.5-15.5) % Plt Count 217 (150-450) k/uL MPV 8.3 Neutrophils % 52 % Lymphocytes % 36 % Monocytes % 5 % Eosinophils % 4 % Basophils % 0 % Neutrophils # 3.3 (1.3-7.7) k/uL Lymphocytes # 2.4 (1.0-4.8) k/uL Monocytes # 0.3 (0-1.0) k/uL Eosinophils # 0.3 (0-0.7) k/uL Basophils # 0.0 (0-0.2) k/uL Sodium 138 (137-145) mmol/L Potassium 4.1 (3.5-5.1) mmol/L Chloride 102 (98-107) mmol/L Carbon Dioxide 23 (22-30) mmol/L Anion Gap 13 mmol/L BUN 10 (7-17) mg/dL Creatinine 0.64 (0.52-1.04) mg/dL Est GFR (CKD-EPI)AfAm >90 (>60 ml/min/1.73 sqM) Est GFR (CKD-EPI)NonAf >90 (>60 ml/min/1.73 sqM) Glucose 111 H (74-99) mg/dL Calcium 9.5 (8.4-10.2) mg/dL Magnesium 1.9 (1.6-2.3) mg/dL Total Bilirubin 0.5 (0.2-1.3) mg/dL AST 25 (14-36) U/L ALT 23 (4-34) U/L Alkaline Phosphatase 61 (38-126) U/L Total Protein 7.5 (6.3-8.2) g/dL Albumin 4.6 (3.5-5.0) g/dL TSH 2.190 (0.465-4.680) mIU/L Urine Color Urine Appearance (Clear) Urine pH (5.0-8.0) Ur Specific [place] (1.001-1.035) Urine Protein (Negative) Urine Glucose (UA) (Negative) Urine Ketones (Negative) Urine Blood (Negative) Urine Nitrite (Negative) Urine Bilirubin (Negative) Urine Urobilinogen (<2.0) mg/dL Ur Leukocyte Esterase (Negative) Urine RBC (0-5) /hpf Urine WBC (0-5) /hpf Ur Squamous Epith Cells (0-4) /hpf Urine Bacteria (None) /hpf Urine Mucus (None) /hpf Urine HCG, Qual (Not Detectd) Heterophile Antibody Negative (Negative) Influenza Type A (PCR) (Not Detectd) Influenza Type B (PCR) (Not Detectd) RSV (PCR) (Not Detectd) SARS-CoV-2 (PCR) (Not Detectd) 05/15/22 05/15/22 05/15/22 Range/Units 13:57 14:30 14:30 WBC (3.8-10.6) k/uL RBC (3.80-5.40) m/uL Hgb (11.4-16.0) gm/dL Hct (34.0-46.0) % MCV (80.0-100.0) fL MCH (25.0-35.0) pg MCHC (31.0-37.0) g/dL RDW (11.5-15.5) % Plt Count (150-450) k/uL MPV Neutrophils % % Lymphocytes % % Monocytes % % Eosinophils % % Basophils % % Neutrophils # (1.3-7.7) k/uL Lymphocytes # (1.0-4.8) k/uL Monocytes # (0-1.0) k/uL Eosinophils # (0-0.7) k/uL Basophils # (0-0.2) k/uL Sodium (137-145) mmol/L Potassium (3.5-5.1) mmol/L Chloride (98-107) mmol/L Carbon Dioxide (22-30) mmol/L Anion Gap mmol/L BUN (7-17) mg/dL Creatinine (0.52-1.04) mg/dL Est GFR (CKD-EPI)AfAm (>60 ml/min/1.73 sqM) Est GFR (CKD-EPI)NonAf (>60 ml/min/1.73 sqM) Glucose (74-99) mg/dL Calcium (8.4-10.2) mg/dL Magnesium (1.6-2.3) mg/dL Total Bilirubin (0.2-1.3) mg/dL AST (14-36) U/L ALT (4-34) U/L Alkaline Phosphatase (38-126) U/L Total Protein (6.3-8.2) g/dL Albumin (3.5-5.0) g/dL TSH (0.465-4.680) mIU/L Urine Color Yellow Urine Appearance Cloudy H (Clear) Urine pH 6.5 (5.0-8.0) Ur Specific [place] 1.021 (1.001-1.035) Urine Protein Trace H (Negative) Urine Glucose (UA) Negative (Negative) Urine Ketones Negative (Negative) Urine Blood Large H (Negative) Urine Nitrite Negative (Negative) Urine Bilirubin Negative (Negative) Urine Urobilinogen <2.0 (<2.0) mg/dL Ur Leukocyte Esterase Negative (Negative) Urine RBC 2 (0-5) /hpf Urine WBC 3 (0-5) /hpf Ur Squamous Epith Cells 12 H (0-4) /hpf Urine Bacteria Rare H (None) /hpf Urine Mucus Rare H (None) /hpf Urine HCG, Qual Not Detected (Not Detectd) Heterophile Antibody (Negative) Influenza Type A (PCR) Not Detected (Not Detectd) Influenza Type B (PCR) Not Detected (Not Detectd) RSV (PCR) Not Detected (Not Detectd) SARS-CoV-2 (PCR) Not Detected (Not Detectd) Disposition Clinical Impression: Fatigue, Nausea & vomiting, Viral infection Disposition: HOME SELF-CARE Instructions (If sedation given, give patient instructions): Acute Nausea and Vomiting (ED) Additional Instructions: Please return to the Emergency Department if symptoms worsen or any other concerns. Prescriptions: Ondansetron Odt [Zofran Odt] 4 mg PO Q8HR PRN #10 tab PRN Reason: Nausea Is patient prescribed a controlled substance at d/c from ED?: No Referrals: None,Stated [Primary Care Provider] - 1-2 days Time of Disposition: 15:13
[2022-05-15 14:01] LABS: Basophils % (A) 0 %; Eosinophils # (A) 0.3 k/uL (0-0.7); Eosinophils % (A) 4 %; HGB 14.1 gm/dL (11.4-16.0); Lymphocytes # (A) 2.4 k/uL (1.0-4.8); Lymphocytes % (A) 36 %; MCH 28.8 pg (25.0-35.0); MCHC 33.6 g/dL (31.0-37.0); MCV 85.6 fL (80.0-100.0); Mean Platelet Volume 8.3; Monocytes # (A) 0.3 k/uL (0-1.0); Monocytes % (A) 5 %; Neutrophils # (A) 3.3 k/uL (1.3-7.7); Neutrophils % (A) 52 %; Platelet Count 217 k/uL (150-450); RBC 4.91 m/uL (3.80-5.40); RDW 13.6 % (11.5-15.5); WBC 6.5 k/uL (3.8-10.6)
[2022-05-15 14:07] LABS: ALT 23 U/L (4-34); AST 25 U/L (14-36); African American GFR (CKD) >90 (>60 ml/min/1.73 sqM); Albumin 4.6 g/dL (3.5-5.0); Alkaline Phosphatase 61 U/L (38-126); Anion Gap 13 mmol/L; Blood Urea Nitrogen 10 mg/dL (7-17); Calcium 9.5 mg/dL (8.4-10.2); Carbon Dioxide 23 mmol/L (22-30); Chloride 102 mmol/L (98-107); Glucose 111 mg/dL (74-99); Magnesium 1.9 mg/dL (1.6-2.3); Non-African American GFR(CKD) >90 (>60 ml/min/1.73 sqM); Potassium 4.1 mmol/L (3.5-5.1); Sodium 138 mmol/L (137-145); Total Bilirubin 0.5 mg/dL (0.2-1.3); Total Protein 7.5 g/dL (6.3-8.2)
[2022-05-15 14:56] LABS: Appearance,Urine Cloudy (Clear); Bacteria,Urine Rare /hpf; Bilirubin,Urine Negative (Negative); Blood,Urine Large (Negative); Color,Urine Yellow; Glucose,Urine (UA) Negative (Negative); Ketones,Urine Negative (Negative); Leukocyte Esterase,Urine Negative (Negative); Mucus,Urine Rare /hpf; Nitrite,Urine Negative (Negative); PH, Urine 6.5 (5.0-8.0); Protein,Urine Trace (Negative); RBC,Urine 2 /hpf (0-5); Specific Gravity,Urine 1.021 (1.001-1.035); Squamous Epithelial Cell,Urine 12 /hpf (0-4); Urobilinogen,Urine <2.0 mg/dL (<2.0); WBC,Urine 3 /hpf (0-5)
[2022-05-15 15:35] VITALS: BP 125/98; PULSE 75; RESP 16
== END 2022-05-15 15:36 | disposition home or self-care (01) ==
LOC: EC 12:56
DX: B34.9 Viral infection, unspecified (principal); R53.83 Other fatigue; Z20.822 Contact with and (suspected) exposure to COVID-19; J45.909 Unspecified asthma, uncomplicated; F32.A Depression, unspecified; Z79.899 Other long term (current) drug therapy; Z91.018 Allergy to other foods
CPT/HCPCS: 36415; 80053; 81001; 81025; 83735; 84443; 85025; 86308; 87636; 96360; 96361; 99284